=== PATIENT | female | born 1985 | race Two or more races ===

== ENCOUNTER 2022-04-10 15:13 | Outpatient (CLI) | payer OTHER | END 2022-04-10 15:22 | disposition home or self-care (01) | LOC: LAB 15:13 | DX: O09.72 Supervision of high risk pregnancy due to social problems, second trimester (principal) ==

== ENCOUNTER 2022-08-13 16:07 | Outpatient (CLI) | payer OTHER | END 2022-08-13 16:39 | disposition home or self-care (01) | LOC: NST 16:07 | PROVIDERS: ATTEND Obstetrics & Gynecology Maternal & Fetal Medicine | DX: Z34.83 Encounter for supervision of other normal pregnancy, third trimester (principal) ==

== ENCOUNTER 2022-09-06 13:30 | Inpatient (IN) | payer OTHER ==
[~2022-09-06] VITALS: Ht 160 cm; Wt 2.3 kg
[2022-09-06] MEDS ORDERED: OBTREX DHA COM1 EACH PO (15:05)
== END 2022-09-14 13:22 | disposition home or self-care (01) | DRG 785 ==
LOC: EDSTATUS 13:30 → O/R 09-12 07:01 → OB/GYN 09-12 07:01
PROVIDERS: ADMIT Obstetrics & Gynecology; ATTEND Obstetrics & Gynecology
PROC: 0UB70ZZ Excision of Bilateral Fallopian Tubes, Open Approach (ICD-10-PCS; 2022-09-12)
PROC: 0DNW0ZZ Release Peritoneum, Open Approach (ICD-10-PCS; 2022-09-12)
PROC: 4A1HXCZ Monitoring of Products of Conception, Cardiac Rate, External Approach (ICD-10-PCS; 2022-09-12)
PROC: 10D00Z1 Extraction of Products of Conception, Low, Open Approach (ICD-10-PCS; principal; 2022-09-12 16:45)
DX: O34.211 Maternal care for low transverse scar from previous cesarean delivery (principal); Z3A.39 39 weeks gestation of pregnancy; Z37.0 Single live birth; O99.613 Diseases of the digestive system complicating pregnancy, third trimester; K66.0 Peritoneal adhesions (postprocedural) (postinfection); Z20.822 Contact with and (suspected) exposure to COVID-19; Z30.2 Encounter for sterilization